=== PATIENT | female | born 1985 | race Caucasian/White ===

== ENCOUNTER 2018-07-03 09:35 | Emergency (ER) | payer SELFPAY ==
[~2018-07-03] VITALS: Ht 157.5 cm; Wt 50.0 kg
[2018-07-03 10:06] VITALS: BP 116/93; Ht 157.5 cm; Wt 50.0 kg
== END 2018-07-03 11:55 | disposition left against medical advice (07) ==
LOC: D.ER 09:35
DX: M79.602 Pain in left arm (principal)